=== PATIENT | female | born 2005 | race Caucasian/White ===

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

== ENCOUNTER 2025-04-03 17:37 | Emergency (ER) | payer BC ==
[~2025-04-03] VITALS: Ht 152.4 cm; Wt 74.2 kg
[2025-04-03] MEDS: MAALOX 30 ML SUSP *UDC PO ONE (18:52)
[2025-04-03] MEDS: LIDOCAINE VISCOUS 2% SOLN 15 ML UDC PO ONE (18:52)
[2025-04-03] MEDS: SUCRALFATE SUSP 1GM/10ML UD PO ONE (18:52)
[2025-04-03 19:01] LABS: BASO # 0.0 10^3/uL (0.0-0.2); BASO % 0.3 % (0.0-1.0); EOS # 0.1 10^3/uL (0.0-0.5); EOS % 0.8 % (0.0-3.0); LYMPH # 3.2 10^3/uL (1.5-5.0); LYMPH % 28.6 % (24.0-44.0); MONO # 0.9 10^3/uL (0.0-0.8); MONO % 8.1 % (2.0-8.0); NEUTROPHILS # 6.9 10^3/uL (1.5-8.5); NEUTROPHILS % 61.9 % (36.0-66.0); PLATELET COUNT, AUTOMATED 251 10^3/uL (150-450)
[2025-04-03 19:30] LABS: CK-MB VALUE MASS < 1.0 NG/ML (<3.6)
[2025-04-03 19:32] LABS: ALT/SGPT 22 U/L (7.0-40); AST/SGOT 18 U/L (<34); CALCIUM LEVEL 9.6 MG/DL (8.5-10.1); CARBON DIOXIDE LEVEL 27 MMOL/L (20-31); CHLORIDE LEVEL 105 MMOL/L (98-107); CPK CREATINE PHOSPHOKINASE 91 U/L (34-145); CREATININE FOR GFR 0.65 MG/DL (0.55-1.30); GLOMERULAR FILTRATION RATE > 90.0 (>60); POTASSIUM SERUM 4.2 MMOL/L (3.5-5.1); SODIUM LEVEL 142 MMOL/L (136-145)
[2025-04-03 19:34] LABS: FREE T4 1.16 NG/DL (0.83-1.43)
[2025-04-03 19:41] LABS: HCG, SERUM QUALITATIVE NEGATIVE (NEGATIVE)
[2025-04-03 20:31] LABS: CK-MB VALUE MASS < 1.0 NG/ML (<3.6)
[2025-04-03 20:33] LABS: CPK CREATINE PHOSPHOKINASE 83 U/L (34-145)
[2025-04-03] MEDS ORDERED: SUCR1SS PO (21:22)
[2025-04-03] MEDS ORDERED: PANT40TA29 PO (21:22)
[2025-04-03 21:34] VITALS: BP 101/70; TEMP 97.8; O2SAT 99
== END 2025-04-03 21:50 | disposition home or self-care (01) ==
LOC: M ED 17:37
DX: K21.9 Gastro-esophageal reflux disease without esophagitis (principal); R07.9 Chest pain, unspecified; I44.0 Atrioventricular block, first degree; Z79.899 Other long term (current) drug therapy